=== PATIENT | female | born 1940 | race Caucasian/White ===

== ENCOUNTER → 2017-02-26 | Day surgery (SDC) | payer MEDICARE, BC ==
[~2017-02-26] MED LIST: ASPI81TA23 PO; ASPI81TA82 PO; BUPIVACAINE HCL PF 0.5% 30 ML VIAL ONE; BUPIVACAINE HCL PF 0.75% 30 ML VIAL ONE; CAPT12.52 PO; CARV12.52 PO; CARV25TA PO; CRAN125T PO; CRANCAP2 PO; ESTR1TAB PO; FLUO10TA PO; HYDR12.56 PO; HYDR12.57 PO; LORA-392 PO; PROPOFOL 200 MG/20 ML AMP IV ONE; SIMV10 PO; SIMV10TA PO; TRIAMCINOLONE ACETONIDE 40 MG/ML VIAL I-ARTICULR ONE; VITA1000 PO; VITATAB25 PO; methylPREDNISolone ACETATE 40 MG/ML VIAL I-ARTICULR ONE
--- NOTE | 2017-02-26 09:54 | M6 ---
cc: SERA NOBLE M.D. DATE 02/26/2017 DATE OF 1940 PROCEDURE Fluoroscopically guided injection right lumbar facet joints (right L2-3, L3-4, L4-5 and L5-S1 facet joints. History and physical was completed and signed. Consent was signed. Procedure site was marked. Medications were listed and reconciled. Pain score was recorded. Allergies were noted. Time out was taken. Fluoroscopy time was recorded where applicable. Sedation was administered or directed by Dr. Noble. The patient was given oxygen. The patient was monitored by a registered nurse. Total procedure time was greater than 15 minutes. PROCEDURE NOTE IV was started. Blood pressure cuff, pulse oximeter and EKG were applied. The patient was placed in the prone position on a [place] table, sedated with small amounts of propofol titrated to effect. Vital signs were monitored and remained stable throughout the procedure. The lumbar area was prepped with alcohol and 10% Betadine solution and draped with sterile drapes. Fluoroscopy was used in a Noé dog view to clearly visualize the right lumbar facet joints at L2-3, L3-4, L4-5 and L5-S1. Separate sterile 3-1/2-inch, 25-gauge spinal needles were advanced into these joints under fluoroscopic guidance. There was negative aspiration for blood or any other type of fluid and at each location the patient was given 1 mL of Marcaine 0.75% which contains 10 mg of Kenalog. Following the procedure the patient was taken to the recovery room with stable vital signs, neurologically intact. She will be evaluated immediately and with followup to determine if she has a subjective decrease her usual pain and a corresponding objective increase in her functional capabilities. WMD CHINYERE Joy/TAMARA /9:25 AM /9:39 AM
== END | disposition home or self-care (01) ==
LOC: PHSDC 08:38
PROVIDERS: ATTEND Pain Medicine Interventional Pain Medicine
DX: M54.5 Low back pain (principal)
CPT/HCPCS: 64493; 64494; 64495; 99152; J1030; J3301